=== PATIENT | female | born 1945 | race Caucasian/White ===

== ENCOUNTER 2021-05-20 06:41 | Outpatient (CLI) | payer MEDICARE | END 2021-05-20 06:42 | disposition critical access hospital (66) | LOC: EMS 06:41 | DX: R41.82 Altered mental status, unspecified (principal) | CPT/HCPCS: A0425; A0429 ==

== ENCOUNTER 2021-05-20 07:16 | Emergency (ER) | payer MEDICARE ==
[2021-05-20] MEDS ORDERED: KETOROLAC 30 MG/ML VIAL IVP STA (07:27)
--- NOTE | 2021-05-20 07:29 | ED Physician Documentation ---
PD HPI ALTERED MENTAL STATUS - Stated complaint Stated Complaint: AMS - History obtained from History obtained from: Patient - History of Present Illness Timing - onset: How many minutes ago (30) Timing - duration: Minutes Timing - details: Abrupt onset ( heard her breathing funny/snoring loud and so tried to wake her. She did not awaken. He tried to sit her up/roll her to side to clear her breathing. She had clenched mouth, per . No extremity movement/seizure activity otherwise. He called EMS. Patient awake by EMS arrival but confused), Other (she says she remembers getting up to bathroom a bit earlier and then back to bed. Remembers it well, and no fall/injury. Then next memory of and medics above her as she awoke.) Quality / character: Less responsive Associated symptoms: No: Fever, Headache, Stiff neck, Dyspnea, Cough, NVD, Seizure activity (clenched mouth per ) Contributing factors: No: Anticoagulated, Diabetic, Recent illness Basline status: Alert and oriented X 3, Ambulatory Similar symptoms before: Has not had sx before Recently seen: Not recently seen Review of Systems Constitutional: denies: Fever, Chills Nose: denies: Rhinorrhea / runny nose, Congestion Throat: denies: Sore throat Respiratory: denies: Cough GI: denies: Abdominal Pain, Nausea, Vomiting, Diarrhea Musculoskeletal: reports: Other (left shoulder pain.) Neurologic: denies: Altered mental status, Headache PD PAST MEDICAL HISTORY - Past Medical History Cardiovascular: Hypertension Musculoskeletal: Osteoarthritis, Other (sciatica) - Past Surgical History Past Surgical History: Yes Cardiovascular: Pacemaker - Present Medications Home Medications: Ambulatory Orders Medication Instructions Recorded Confirmed Atorvastatin Calcium 1 tab DAILY 05/20/21 05/20/21 Meloxicam [Mobic] 7.5 mg PO BID 10 Days #20 tablet 05/20/21 Metoprolol Tartrate [Lopressor] 1 tab BID 05/20/21 05/20/21 Omeprazole 1 tab DAILY 05/20/21 05/20/21 Ondansetron Odt [Zofran] 4 mg TL Q6H PRN #20 tablet 05/20/21 oxyCODONE [Roxicodone] 5 mg PO Q6H PRN #12 tablet 05/20/21 - Allergies Allergies/Adverse Reactions: Allergies Allergy/AdvReac Type Severity Reaction Status Date / Time No Known Drug Allergies Allergy Verified 05/20/21 07:27 - Social History Does the pt smoke?: No Smoking Status: Never smoker Does the pt drink ETOH?: No Does the pt have substance abuse?: No - Immunizations Immunizations are current?: Yes - POLST Patient has POLST: No PD ED PE NORMAL - Vitals Vital signs reviewed: Yes - General General: Alert and oriented X 3, No acute distress, Well developed/nourished - HEENT HEENT: Atraumatic, Pharynx benign (no oral lesions/lacs. ) - Neck Neck: Supple, no meningeal sign, No adenopathy - Cardiac Cardiac: RRR, No murmur - Respiratory Respiratory: Clear bilaterally - Abdomen Abdomen: Soft, Non tender - Back Back: No CVA TTP - Derm Derm: Normal color, Warm and dry - Extremities Extremities: Other (left shoulder pain with palpation and slight movement. 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 No: ST elevation c/w ischemia, ST depression - Labs Labs: Laboratory Tests 05/20/21 05/20/21 05/20/21 07:36 07:36 07:36 WBC 7.5 RBC 4.07 L Hgb 12.7 Hct 39.7 MCV 97.5 MCH 31.2 H MCHC 32.0 RDW 12.8 Plt Count 206 MPV 11.3 H Neut # (Auto) 5.8 Lymph # (Auto) 1.0 L Frio # (Auto) 0.4 Eos # (Auto) 0.1 Baso # (Auto) 0.0 Absolute Nucleated RBC 0.00 Nucleated RBC % 0.0 Sodium 139 Potassium 4.1 Chloride 103 Carbon Dioxide 26 Anion Gap 10.0 BUN 15 Creatinine 0.8 Estimated GFR (MDRD) 70 L Glucose 149 H Calcium 9.3 Magnesium 2.4 Total Bilirubin 0.5 AST 17 ALT 16 Alkaline Phosphatase 73 Troponin I High Sens 2.7 B-Natriuretic Peptide Total Protein 7.3 Albumin 4.4 Globulin 2.9 Albumin/Globulin Ratio 1.5 Lipase 28 05/20/21 07:36 WBC RBC Hgb Hct MCV MCH MCHC RDW Plt Count MPV Neut # (Auto) Lymph # (Auto) Frio # (Auto) Eos # (Auto) Baso # (Auto) Absolute Nucleated RBC Nucleated RBC % Sodium Potassium Chloride Carbon Dioxide Anion Gap BUN Creatinine Estimated GFR (MDRD) Glucose Calcium Magnesium Total Bilirubin AST ALT Alkaline Phosphatase Troponin I High Sens B-Natriuretic Peptide 45 Total Protein Albumin Globulin Albumin/Globulin Ratio Lipase - Rads (name of study) chest xray Radiology: Prelim report reviewed (no acute), See rad report shoulder left Radiology: Prelim report reviewed (humeral neck fracture), See rad report head CT Radiology: Prelim report reviewed (no acute), See rad report PD MEDICAL DECISION MAKING - ED course Complexity details: reviewed results, considered differential (description could be seizure versus syncope, low sugar, low BP. Unclear how she got arm fracture. Could be c/w seizure acitivty, though does not describe tonic/clonic movement. He did turn her sideways in bed by shoulders, so could have torqued the arm. She is sure she did not fall.), d/w patient Departure - Departure Disposition: 01 Home, Self Care Clinical Impression: Unresponsive episode Humerus surgical neck fracture Qualifiers: Encounter type: initial encounter Fracture type: closed Fracture morphology: 2- part Fracture alignment: nondisplaced Laterality: left Qualified Code(s): S42.225A - 2-part nondisplaced fracture of surgical neck of left humerus, initial encounter for closed fracture Condition: Stable Instructions: ED Fx Shoulder Follow-Up: Danielle Bryant MD [Primary Care Provider] - Prescriptions: Meloxicam [Mobic] 7.5 mg PO BID 10 Days #20 tablet oxyCODONE [Roxicodone] 5 mg PO Q6H PRN #12 tablet PRN Reason: Pain Ondansetron Odt [Zofran] 4 mg TL Q6H PRN #20 tablet PRN Reason: Nausea / Vomiting Comments: Pain to help reduce range of motion of the shoulder and reduce pain and promote healing. Follow-up with your orthopedist Dr. Retana regarding this. Call for an appointment for follow-up likely in about a week. Follow-up with your primary care as well Dr. Bryant regarding the episode. See if there is any further evaluation there would like to do. Send in an interrogation of your heart pacemaker to see if there was any abnormal rhythm during that time. Stay well-hydrated. Consider an anti-inflammatory such as meloxicam twice daily with food for the next 7 to 10 days. To that add Tylenol 4 times a day for pain and oxycodone every 6 hours if needed for worse pain. Ondansetron if needed for nausea. Ccontinue your other usual medicines. I transmitted the prescriptions to [facility] in [place]. I am prescribing a short course of narcotic pain medication for you. These are potentially dangerous and addictive medications that should be used carefully. These medications may constipate you. Take an [id number] stool softener such as docusate twice daily with plenty of water while taking these medications. If you go 24 hours without a bowel movement, take jrsi-xez-[id number] MiraLAX, per package instructions. Do not drink or drive while taking these medications. If you received narcotic or sedating medications while in the emergency department do not drive for 24 hours. Store this medication in a safe, secure place and out of reach of children. It is a violation of federal law to give or sell this medication to another person or to use in a manner other than prescribed. The ED will not refill narcotic prescriptions, including prescriptions lost or stolen. You can dispose of unwanted medications at the [facility]'s office or at several pharmacies such as [email or web address] Discharge Date/Time: 05/20/21 10:35
[2021-05-20 07:53] LABS: BASOPHILS % (AUTO) 0.5 %; EOSINOPHILS # (AUTO) 0.1 10^3/uL (0.0-0.7); EOSINOPHILS % (AUTO) 1.7 %; HCT - HEMATOCRIT 39.7 % (37.0-47.0); HGB - HEMOGLOBIN 12.7 g/dL (12.0-16.0); LYMPHOCYTES % (AUTO) 13.9 %; MEAN CORPUSCULAR HEMOGLOBIN 31.2 pg (27.0-31.0); MEAN CORPUSCULAR VOLUME 97.5 fL (81.0-99.0); MEAN PLATELET VOLUME 11.3 fL (7.9-10.8); MONOCYTES # (AUTO) 0.4 10^3/uL (0.0-1.0); MONOCYTES % (AUTO) 5.5 %; NEUTROPHILS # (AUTO) 5.8 10^3/uL (1.5-6.6); NEUTROPHILS % (AUTO) 77.9 %; PLT - PLATELET COUNT 206 10^3/uL (130-450); RED BLOOD COUNT 4.07 10^6/uL (4.20-5.40); RED CELL DISTRIBUTION WIDTH 12.8 % (12.0-15.0); WHITE BLOOD COUNT 7.5 x10^3/uL (4.8-10.8)
[2021-05-20 08:12] LABS: ALBUMIN 4.4 g/dL (3.2-5.5); ALBUMIN/GLOBULIN RATIO 1.5 (1.0-2.2); BILIRUBIN,TOTAL 0.5 mg/dL (0.2-1.0); CALCIUM 9.3 mg/dL (8.5-10.3); CREATININE 0.8 mg/dL (0.4-1.0); MAGNESIUM 2.4 mg/dL (1.7-2.8); POTASSIUM 4.1 mmol/L (3.5-5.0); TOTAL PROTEIN 7.3 g/dL (6.7-8.2)
--- NOTE | 2021-05-20 08:15 | XRAY Report ---
PROCEDURE: Shoulder 3 View LT INDICATIONS: left shoulder pain this morning TECHNIQUE: 3 views of the shoulder were acquired. COMPARISON: None. FINDINGS: Bones: Subtle impaction and radial lucency involving greater and lesser tuberosity of proximal humeru s concerning for impaction injury of indeterminant age in this area. Moderate acromioclavicular joint and glenohumeral joint osteoarthritic changes are seen. No suspicious bony lesions. Visualized ribs appear intact. Soft tissues: Small calcifications adjacent to greater tuberosity of humeral head is seen suggestive of calcific tendinitis. IMPRESSION: Moderate left shoulder joint osteoarthritis. Subtle radiolucency and deformity involving surgical neck of left proximal humerus concerning for age-indeterminate impaction injury in this are a, suggest clinical correlation. This is a new finding from chest radiograph dated 05/04/2013. Reviewed by: Sreedhar Rodriguez MD on 05/20/2021 8:14 AM PDT Approved by: Sreedhar Rodriguez MD on 05/20/2021 8:14 AM PDT Station ID: [id number]
--- NOTE | 2021-05-20 08:17 | XRAY Report ---
PROCEDURE: Chest 1 View X-Ray INDICATIONS: Chest Pain TECHNIQUE: One view of the chest was acquired. COMPARISON: 05/04/2013 FINDINGS: Surgical changes and devices: Patient is status post right shoulder arthroplasty. Left chest wall pac emaker leads are in the region of right atrium and right ventricle.. Lungs and pleura: No pleural effusions or pneumothorax. Lungs are clear. Mediastinum: Mediastinal contours appear normal. Heart size is enlarged. Bones and chest wall: Subtle deformity involving left humeral surgical neck. Overlying soft tissues a ppear unremarkable. IMPRESSION: 1. No acute cardiopulmonary pathology. 2. Subtle deformity involving surgical neck of left proximal humerus better evaluated on dedicated le ft shoulder radiograph from the same day. Reviewed by: Sreedhar Rodriguez MD on 05/20/2021 8:15 AM PDT Approved by: Sreedhar Rodriguez MD on 05/20/2021 8:15 AM PDT Station ID: [id number]
--- NOTE | 2021-05-20 08:45 | CT Report ---
PROCEDURE: HEAD WO INDICATIONS: possible fall; altered mental statsu TECHNIQUE: Noncontrast 4.5 mm thick angled axial sections acquired from the foramen magnum to the vertex. For r adiation dose reduction, the following was used: automated exposure control, adjustment of mA and/or kV according to patient size. COMPARISON: 05/04/2013. FINDINGS: Image quality: Excellent. CSF spaces: Basal cisterns are patent. No extra-axial fluid collections. Ventricles are normal in size and shape. Brain: No midline shift. No intracranial masses or hemorrhage. Extensive periventricular and deep white matter chronic small vessel ischemic changes are seen. Goyal-white matter interface is normal. Skull and face: Calvarium and visualized facial bones are intact, without suspicious lesions. Sinuses: Visualized sinuses and mastoids are clear. IMPRESSION: 1. No CT evidence of acute intracranial pathology. 2. Extensive white matter chronic small vessel ischemic changes. 3. No gross acute skull fracture. Reviewed by: Sreedhar Rodriguez MD on 05/20/2021 8:43 AM PDT Approved by: Sreedhar Rodriguez MD on 05/20/2021 8:43 AM PDT Station ID: [id number]
[2021-05-20] MEDS ORDERED: MORPHINE 2 MG/ML CARPUJECT IVP STA (09:30)
[2021-05-20] MEDS ORDERED: ONDANSETRON 4 MG/2 ML VIAL IVP STA (09:30)
[2021-05-20] MEDS ORDERED: ACETAMINOPHEN 325 MG TABLET PO STA (09:30)
[2021-05-20 10:16] VITALS: BP 138/73
== END 2021-05-20 10:35 | disposition home or self-care (01) ==
LOC: EDUNIT# → ED 07:16
DX: R40.4 Transient alteration of awareness (principal); R41.0 Disorientation, unspecified; S42.225A 2-part nondisplaced fracture of surgical neck of left humerus, initial encounter for closed fracture; X58.XXXA Exposure to other specified factors, initial encounter; I10 Essential (primary) hypertension; Z95.0 Presence of cardiac pacemaker
CPT/HCPCS: 36415; 70450; 71045; 73030; 80053; 83690; 83735; 83880; 84484; 85025; 93005; 96374; 96375; 99283; 99284; A9270

== ENCOUNTER 2022-01-15 00:32 | Outpatient (CLI) | payer MEDICARE | END 2022-01-15 23:59 | disposition critical access hospital (66) | LOC: EMS 00:32 | DX: R41.0 Disorientation, unspecified (principal); R11.0 Nausea; R32 Unspecified urinary incontinence; H55.00 Unspecified nystagmus | CPT/HCPCS: A0425; A0427 ==

== ENCOUNTER 2022-01-15 01:08 | Emergency (ER) | payer MEDICARE ==
--- NOTE | 2022-01-15 01:15 | ED Physician Documentation ---
PD HPI ALTERED MENTAL STATUS - Stated complaint Stated Complaint: AMS, POSS SZ - History obtained from History obtained from: Patient, EMS - History of Present Illness Timing - onset: How many hours ago (1) Associated symptoms: Headache (mild generalized). 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 Approximately 1 hour INSPECTOR [employer], was lying in bed next to patient when he heard her breathing sonorously. He found her to be unresponsive and called 911. He reportedly briefly performed CPR. EMS arrived to find patient awake, alert, answering slowly and oriented x 2. Patient has gradually returned to baseline mental status by the time of this H+P. At no time was there witnessed seizure activity (by or EMS) Patient says she had a similar episode in May (2020) and that it was a seizure; in reviewing the ED note 05/20/21, it indicates seizure was on the differential diagnosis but not final diagnosis. Patient tells me she did follow up after that ED visit but no further testing performed. Review of Systems Constitutional: reports: Reviewed and negative Eyes: reports: Reviewed and negative Throat: reports: Other (lower lip injury (appears to have bitten her lower lip)) Cardiac: reports: Reviewed and negative Respiratory: reports: Reviewed and negative GI: reports: Reviewed and negative : denies: Dysuria, Frequency, Incontinent Musculoskeletal: reports: Reviewed and negative Neurologic: reports: Headache (mild generalized headache), LOC. denies: Generalized weakness, Focal weakness, Numbness PD PAST MEDICAL HISTORY - Past Medical History Cardiovascular: Hypertension Respiratory: Sleep apnea, CPAP use Musculoskeletal: Osteoarthritis, Other (sciatica) - Past Surgical History Past Surgical History: Yes Cardiovascular: Pacemaker - Present Medications Home Medications: Ambulatory Orders Medication Instructions Recorded Confirmed Atorvastatin Calcium 1 tab DAILY 05/20/21 05/20/21 Meloxicam [Mobic] 7.5 mg PO BID 10 Days #20 tablet 05/20/21 Metoprolol Tartrate [Lopressor] 1 tab BID 05/20/21 05/20/21 Omeprazole 1 tab DAILY 05/20/21 05/20/21 Ondansetron Odt [Zofran] 4 mg TL Q6H PRN #20 tablet 05/20/21 oxyCODONE [Roxicodone] 5 mg PO Q6H PRN #12 tablet 05/20/21 - Allergies Allergies/Adverse Reactions: Allergies Allergy/AdvReac Type Severity Reaction Status Date / Time No Known Drug Allergies Allergy Verified 01/15/22 01:15 - Social History Does the pt smoke?: No Smoking Status: Never smoker Does the pt drink ETOH?: No Does the pt have substance abuse?: No - Immunizations Immunizations are current?: Yes - POLST Patient has POLST: No PD ED PE NORMAL - Vitals Vital signs reviewed: Yes - General General: Alert and oriented X 3, No acute distress, Well developed/nourished - HEENT HEENT: PERRL, EOMI, Other (superficial bite nisha to mucosal aspect of lower lip as well as to right lateral aspect of tongue) - Neck Neck: Supple, no meningeal sign, No bony TTP - Cardiac Cardiac: RRR, No murmur, No gallop, No rub - Respiratory Respiratory: No respiratory distress, Clear bilaterally - Abdomen Abdomen: Soft, Non tender - Back Back: No spinal TTP - Derm Derm: Normal color, Warm and dry - Extremities Extremities: No deformity, No tenderness to palpate, Normal ROM s pain - Neuro Neuro: Alert and oriented X 3, 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, No motor deficit, No sensory deficit, Normal speech Eye Opening: Spontaneous Motor: Obeys Commands Verbal: Oriented GCS Score: 15 - Psych Psych: Normal mood, Normal affect Results - Vitals Vitals: Oxygen O2 Source Room air - EKG (time done) No standard instances Rate: Rate (enter#) (83) Rhythm: NSR Nash: LAD Intervals: Normal [place] QRS: Normal Ischemia: Normal ST segments - Labs Labs: Laboratory Tests 01/15/22 01/15/22 01/15/22 01:31 01:31 01:31 WBC 6.9 RBC 3.90 L Hgb 12.1 Hct 37.2 MCV 95.4 MCH 31.0 MCHC 32.5 RDW 12.7 Plt Count 220 MPV 10.9 H Neut # (Auto) 5.5 Lymph # (Auto) 0.8 L [place] # (Auto) 0.5 Eos # (Auto) 0.1 Baso # (Auto) 0.0 Absolute Nucleated RBC 0.00 Nucleated RBC % 0.0 Sodium 141 Potassium 3.7 Chloride 104 Carbon Dioxide 26 Anion Gap 11.0 BUN 11 Creatinine 0.9 Estimated GFR (MDRD) 61 L Glucose 131 H Calcium 9.0 Total Bilirubin 0.5 AST 17 ALT 16 Alkaline Phosphatase 74 Troponin I High Sens Total Protein 7.3 Albumin 4.3 Globulin 3.0 Albumin/Globulin Ratio 1.4 Lipase 29 TSH 3.62 Urine Color Urine Clarity Urine pH Ur Specific [place] Urine Protein Urine Glucose (UA) Urine Ketones Urine Occult Blood Urine Nitrite Urine Bilirubin Urine Urobilinogen Ur Leukocyte Esterase Ur Microscopic Review Urine Culture Comments Ethyl Alcohol 5.2 01/15/22 01/15/22 01:31 03:24 WBC RBC Hgb Hct MCV MCH MCHC RDW Plt Count MPV Neut # (Auto) Lymph # (Auto) [place] # (Auto) Eos # (Auto) Baso # (Auto) Absolute Nucleated RBC Nucleated RBC % Sodium Potassium Chloride Carbon Dioxide Anion Gap BUN Creatinine Estimated GFR (MDRD) Glucose Calcium Total Bilirubin AST ALT Alkaline Phosphatase Troponin I High Sens 3.2 Total Protein Albumin Globulin Albumin/Globulin Ratio Lipase TSH Urine Color YELLOW Urine Clarity CLEAR Urine pH 5.5 Ur Specific [place] 1.020 Urine Protein NEGATIVE Urine Glucose (UA) NEGATIVE Urine Ketones NEGATIVE Urine Occult Blood NEGATIVE Urine Nitrite NEGATIVE Urine Bilirubin NEGATIVE Urine Urobilinogen 0.2 (NORMAL) Ur Leukocyte Esterase NEGATIVE Ur Microscopic Review NOT INDICATED Urine Culture Comments NOT INDICATED Ethyl Alcohol - Rads (name of study) chest xray Radiology: Prelim report reviewed, See rad report CT head Radiology: Prelim report reviewed, See rad report PD MEDICAL DECISION MAKING - ED course Complexity details: reviewed old records, reviewed results, re-evaluated patient, considered differential, d/w patient ED course: Patient presents after found her sonorous in bed next to him with decreased level of consciousness. She gradually but completely returned to baseline mental status prior to arrival to ED. She is certain she had "another seizure" (per patient), based on a similar previous episode in May 2021. HPI and finding of tongue/lip bite is consistent with seizure, but I emphasized to her that other possibilities remain on the differential, such as transient drop in BP/transient cardiac dysrhythmia. During ED stay, she had an episode of nausea associated with appearing diaphoretic and pale; I was summoned to bedside and felt a strong right radial pulse and her vital signs remained within normal limits on the monitor. By the time the blood pressure cuff was able to recycle and obtain a reading (it had to reinflate at least once due to not obtaining a reading), her symptoms had nearly resolved and her blood pressure reading was normal; transient hypotension is suspected (possibly too low for auto BP cuff to read, although I did not feel her pulse become weak or thready), but cause is unclear and whether this episode is related to the episode at home for which called 911 is also unclear. She was observed in ED for over five hours and after tests resulted and she had some rest, she is requesting d/c home. I discussed results with her (no concerning findings on CTH, CXR, EKG, blood tests including normal hs-cTn) and I emphasized the need for follow up with PMD for reevaluation and possible further testing at PMD's discretion. Return precautions discussed. Departure - Departure Disposition: 01 Home, Self Care Clinical Impression: Altered mental status Qualifiers: Altered mental status type: unspecified Qualified Code(s): R41.82 - Altered mental status, unspecified Condition: Good Instructions: ED Altered Loc, ED Fainting Unkn Cause Comments: As we discussed, the results of tonight's tests are unremarkable. This is obviously reassuring and makes a serious cause of symptoms unlikely. Seizure remains a possibility but suspicion for seizure typically is raised when there is witnessed seizure activity. Follow up with your primary care provider. You have indicated you have a neurologist, and I recommend you also seek follow up with your neurologist. Further testing can help determine whether you have an underlying seizure disorder (EEG), but whether this testing is indicated and/or potentially beneficial is at the discretion of your doctor Discharge Date/Time: 01/15/22 06:29
[2022-01-15 01:39] LABS: BASOPHILS % (AUTO) 0.3 %; EOSINOPHILS # (AUTO) 0.1 10^3/uL (0.0-0.7); EOSINOPHILS % (AUTO) 1.7 %; HCT - HEMATOCRIT 37.2 % (37.0-47.0); HGB - HEMOGLOBIN 12.1 g/dL (12.0-16.0); LYMPHOCYTES # (AUTO) 0.8 10^3/uL (1.5-3.5); LYMPHOCYTES % (AUTO) 10.9 %; MEAN CORPUSCULAR HGB CONC 32.5 g/dL (32.0-36.0); MEAN CORPUSCULAR VOLUME 95.4 fL (81.0-99.0); MEAN PLATELET VOLUME 10.9 fL (7.9-10.8); MONOCYTES # (AUTO) 0.5 10^3/uL (0.0-1.0); NEUTROPHILS # (AUTO) 5.5 10^3/uL (1.5-6.6); NEUTROPHILS % (AUTO) 79.8 %; PLT - PLATELET COUNT 220 10^3/uL (130-450); RED CELL DISTRIBUTION WIDTH 12.7 % (12.0-15.0); WHITE BLOOD COUNT 6.9 x10^3/uL (4.8-10.8)
[2022-01-15] MEDS ORDERED: ONDANSETRON 4 MG/2 ML VIAL IVP STA (01:48)
[2022-01-15 01:52] LABS: ALBUMIN 4.3 g/dL (3.2-5.5); ALBUMIN/GLOBULIN RATIO 1.4 (1.0-2.2); BILIRUBIN,TOTAL 0.5 mg/dL (0.2-1.0); CREATININE 0.9 mg/dL (0.4-1.0); ETOH - ETHANOL 5.2 mg/dL; POTASSIUM 3.7 mmol/L (3.5-5.0); TOTAL PROTEIN 7.3 g/dL (6.7-8.2)
--- NOTE | 2022-01-15 02:00 | CT Report ---
PROCEDURE: HEAD WO INDICATIONS: AMS TECHNIQUE: Noncontrast 4.5 mm thick angled axial sections acquired from the foramen magnum to the vertex. For r adiation dose reduction, the following was used: automated exposure control, adjustment of mA and/or kV according to patient size. COMPARISON: CT head 05/20/2021. FINDINGS: Image quality: Excellent. CSF spaces: The ventricles are symmetric and normal in size. Basal cisterns are patent. No extra-axi al fluid collections. Brain: No intracranial hemorrhage, mass, or mass effect. Goyal-white matter interface is preserved. T here are patchy subcortical and periventricular white matter hypodensities redemonstrated consistent with moderate chronic small vessel ischemic changes. Skull and face: Calvarium and visualized facial bones are intact, without suspicious lesions. Sinuses: Visualized sinuses and mastoids are clear. IMPRESSION: 1. No acute intracranial abnormality. 2. Moderate chronic white matter small vessel ischemic changes. Reviewed by: Hiren Kong MD on 01/15/2022 1:59 AM PDT Approved by: Hiren Kong MD on 01/15/2022 1:59 AM PDT Station ID: [id number]
--- NOTE | 2022-01-15 02:03 | XRAY Report ---
PROCEDURE: Chest 1 View X-Ray INDICATIONS: AMS TECHNIQUE: One view of the chest was acquired. COMPARISON: 05/20/2021 FINDINGS: Surgical changes and devices: Left chest wall dual-lead pacemaker appears similar in position. The ri ght shoulder prosthesis is also again noted. Lungs and pleura: No pleural effusions or pneumothorax. Visualized lungs are clear. Mediastinum: Mediastinal contours appear normal. Heart size is normal. Bones and chest wall: No suspicious bony lesions. Overlying soft tissues appear unremarkable. IMPRESSION: 1. No acute cardiopulmonary disease. Reviewed by: Hiren Kong MD on 01/15/2022 2:02 AM PDT Approved by: Hiren Kong MD on 01/15/2022 2:02 AM PDT Station ID: [id number]
[2022-01-15 03:37] LABS: BILIRUBIN,URINE NEGATIVE (NEGATIVE); GLUCOSE, URINE (UA) NEGATIVE (NEGATIVE); KETONES,URINE (UA) NEGATIVE (NEGATIVE); LEUKOCYTE ESTERASE, URINE NEGATIVE (NEGATIVE); NITRITE,URINE NEGATIVE (NEGATIVE); OCCULT BLOOD,URINE NEGATIVE (NEGATIVE); PH,URINE 5.5 PH (5.0-7.5); PROTEIN,URINE NEGATIVE (NEGATIVE); UROBILINOGEN,URINE 0.2 (NORMAL) E.U./dL (NORMAL)
[2022-01-15 03:39] LABS: CLARITY,URINE CLEAR (CLEAR)
[2022-01-15 05:13] VITALS: BP 99/43
== END 2022-01-15 06:29 | disposition home or self-care (01) ==
LOC: ED 01:08
DX: R41.82 Altered mental status, unspecified (principal); I10 Essential (primary) hypertension; Z95.0 Presence of cardiac pacemaker
CPT/HCPCS: 36415; 70450; 71045; 80053; 81003; 83690; 84443; 84484; 85025; 93005; 96374; 99283; 99284; G0480; 80320; 81001; 87086

== ENCOUNTER 2022-03-04 11:30 | Emergency (ER) | payer MEDICARE ==
--- NOTE | 2022-03-04 11:55 | ED Physician Documentation ---
PD HPI ALTERED MENTAL STATUS - Stated complaint Stated Complaint: R KNEE PX - Chief complaint Chief Complaint: Neuro - History obtained from History obtained from: Patient - History of Present Illness Timing - onset: Today, Yesterday Timing - duration: Seconds Timing - details: Abrupt onset, Now resolved (she has noted brief periods of memory loss, not being aware of events just happened (like watching a TV show and then suddenly the plot has advanced without seeing the interval).) Quality / character: Memory Loss Associated symptoms: No: Fever, Headache, Stiff neck, Focal weakness, Seizure activity, Syncope Contributing factors: Recent med change (had changed from oxycodone to tramadol for post op knee pain 3 days ago.). No: Recent illness Review of Systems Constitutional: denies: Fever, Chills Nose: denies: Rhinorrhea / runny nose, Congestion Throat: denies: Sore throat Cardiac: denies: Chest pain / pressure Respiratory: denies: Dyspnea, Cough GI: denies: Abdominal Pain, Nausea, Vomiting Neurologic: denies: Focal weakness, Numbness, Seizure, Headache, Head injury PD PAST MEDICAL HISTORY - Past Medical History Cardiovascular: Hypertension Respiratory: Sleep apnea, CPAP use Musculoskeletal: Osteoarthritis, Other (sciatica) - Past Surgical History Past Surgical History: Yes Cardiovascular: Pacemaker - Present Medications Home Medications: Ambulatory Orders Medication Instructions Recorded Confirmed Atorvastatin Calcium 1 tab DAILY 05/20/21 05/20/21 Meloxicam [Mobic] 7.5 mg PO BID 10 Days #20 tablet 05/20/21 Metoprolol Tartrate [Lopressor] 1 tab BID 05/20/21 05/20/21 Omeprazole 1 tab DAILY 05/20/21 05/20/21 Ondansetron Odt [Zofran] 4 mg TL Q6H PRN #20 tablet 05/20/21 oxyCODONE [Roxicodone] 5 mg PO Q6H PRN #12 tablet 05/20/21 - Allergies Allergies/Adverse Reactions: Allergies Allergy/AdvReac Type Severity Reaction Status Date / Time No Known Drug Allergies Allergy Verified 03/04/22 11:49 - Social History Does the pt smoke?: No Smoking Status: Never smoker Does the pt drink ETOH?: No Does the pt have substance abuse?: No - Immunizations Immunizations are current?: Yes - POLST Patient has POLST: No PD ED PE NORMAL - Vitals Vital signs reviewed: Yes - General General: Alert and oriented X 3, No acute distress, Well developed/nourished - HEENT HEENT: Atraumatic, Pharynx benign - Neck Neck: Supple, no meningeal sign, No adenopathy - Cardiac Cardiac: RRR, No murmur - Respiratory Respiratory: Clear bilaterally - Abdomen Abdomen: Soft, Non tender - Derm Derm: Normal color, Warm and dry - Extremities Extremities: No edema, No calf tenderness / cord, Other (right knee with surgical wound anteriorly well healing without signs of infection. 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 No: ST elevation c/w ischemia, ST depression - Labs Labs: Laboratory Tests 03/04/22 03/04/22 14:17 14:17 WBC 7.7 RBC 3.52 L Hgb 11.1 L Hct 33.9 L MCV 96.3 MCH 31.5 H MCHC 32.7 RDW 13.1 Plt Count 342 MPV 10.5 Neut # (Auto) 5.4 Lymph # (Auto) 1.3 L [place] # (Auto) 0.6 Eos # (Auto) 0.3 Baso # (Auto) 0.1 Absolute Nucleated RBC 0.00 Nucleated RBC % 0.0 Manual Slide Review Indicated WBC Morphology NORMAL APPEARANCE Platelet Estimate NORMAL (130-450,000) Platelet Morphology NORMAL APPEARANCE RBC Morph Micro Appear NORMAL APPEARANCE Sodium 138 Potassium 4.2 Chloride 100 L Carbon Dioxide 26 Anion Gap 12.0 BUN 17 Creatinine 0.7 Estimated GFR (MDRD) 82 L Glucose 113 H Calcium 9.1 Magnesium 2.1 Total Bilirubin 0.7 AST 14 ALT 14 Alkaline Phosphatase 75 Total Protein 7.1 Albumin 3.7 Globulin 3.4 Albumin/Globulin Ratio 1.1 Lipase 25 - Rads (name of study) carotid dopplers Radiology: Prelim report reviewed, See rad report (no occlusions over 50%.) head CT Radiology: Prelim report reviewed (no acute process), See rad report PD MEDICAL DECISION MAKING - ED course Complexity details: considered differential (nonfocal memory loss/not aware of events for short periods. Sounds more likely toxic/metabolic and not neuro. Timing corresponds with change in pain meds to Tramadol and this could easily be side effect of that. Can check labs and head CT. ), d/w patient, d/w claims consultant (provider at [facility] vascular called that they talked with patient and referred to ER. Not gotten report from her pacer as yet. ) Departure - Departure Disposition: 01 Home, Self Care Clinical Impression: Intermittent confusion Status post knee replacement Qualifiers: Laterality: right Qualified Code(s): Z96.651 - Presence of right artificial knee joint Condition: Stable Record reviewed to determine appropriate education?: Yes Comments: Your head CT scan and neck ultrasound do not show any acute abnormalities nor flow limitations. Your vital signs and blood count and electrolytes and blood sugar are all good here. I believe your episodes of forgetfulness and confusion might relate to medication side effects, in particular the recent change in pain medicine to tramadol. I would suggest not taking the tramadol. Use Tylenol every 4-6 hours regularly for the next several days to week. You can continue with the meloxicam if needed. This is an anti-inflammatory. If you need stronger pain medicine, I would go back to your oxycodone but take just a half a tablet of 2.5 mg if you do not need as much pain medicine as the 5 mg. Follow-up with your primary care and cardiology etc. if continued with episodes despite the above. Stay well-hydrated. Discharge Date/Time: 03/04/22 16:02
--- NOTE | 2022-03-04 13:44 | CT Report ---
PROCEDURE: HEAD WO INDICATIONS: episodic confusion x few days TECHNIQUE: Noncontrast 4.5 mm thick angled axial sections acquired from the foramen magnum to the vertex. For r adiation dose reduction, the following was used: automated exposure control, adjustment of mA and/or kV according to patient size. COMPARISON: 01/15/2022 FINDINGS: Image quality: Excellent. CSF spaces: Basal cisterns are patent. No extra-axial fluid collections. Ventricles are normal in size and shape. Brain: No acute intracranial hemorrhage. Moderate periventricular white matter attenuation likely ref lects chronic microangiopathy. There are vascular calcifications. No large territory infarction. Over all pattern of hypoattenuation is stable compared to January 2022. Skull and face: Calvarium and visualized facial bones are intact, without suspicious lesions. Sinuses: Visualized sinuses and mastoids are clear. IMPRESSION: No acute intracranial abnormality. Chronic evidence of small vessel ischemic changes. Reviewed by: Sancho Davalos MD on 03/04/2022 1:43 PM PDT Approved by: Sancho Davalos MD on 03/04/2022 1:43 PM PDT Station ID: [id number]
[2022-03-04 14:26] LABS: BASOPHILS # (AUTO) 0.1 10^3/uL (0.0-0.1); BASOPHILS % (AUTO) 0.8 %; EOSINOPHILS # (AUTO) 0.3 10^3/uL (0.0-0.7); EOSINOPHILS % (AUTO) 3.9 %; HCT - HEMATOCRIT 33.9 % (37.0-47.0); HGB - HEMOGLOBIN 11.1 g/dL (12.0-16.0); LYMPHOCYTES # (AUTO) 1.3 10^3/uL (1.5-3.5); LYMPHOCYTES % (AUTO) 17.3 %; MEAN CORPUSCULAR HEMOGLOBIN 31.5 pg (27.0-31.0); MEAN CORPUSCULAR HGB CONC 32.7 g/dL (32.0-36.0); MEAN CORPUSCULAR VOLUME 96.3 fL (81.0-99.0); MEAN PLATELET VOLUME 10.5 fL (7.9-10.8); MONOCYTES # (AUTO) 0.6 10^3/uL (0.0-1.0); MONOCYTES % (AUTO) 8.2 %; NEUTROPHILS # (AUTO) 5.4 10^3/uL (1.5-6.6); NEUTROPHILS % (AUTO) 69.5 %; PLT - PLATELET COUNT 342 10^3/uL (130-450); RED BLOOD COUNT 3.52 10^6/uL (4.20-5.40); RED CELL DISTRIBUTION WIDTH 13.1 % (12.0-15.0); WHITE BLOOD COUNT 7.7 x10^3/uL (4.8-10.8)
[2022-03-04 14:31] LABS: SLIDE REVIEW? Indicated
[2022-03-04 14:37] LABS: ALBUMIN 3.7 g/dL (3.2-5.5); ALBUMIN/GLOBULIN RATIO 1.1 (1.0-2.2); BILIRUBIN,TOTAL 0.7 mg/dL (0.2-1.0); CALCIUM 9.1 mg/dL (8.5-10.3); CREATININE 0.7 mg/dL (0.4-1.0); MAGNESIUM 2.1 mg/dL (1.7-2.8); POTASSIUM 4.2 mmol/L (3.5-5.0); TOTAL PROTEIN 7.1 g/dL (6.7-8.2)
[2022-03-04 14:52] LABS: PLATELET ESTIMATE, MANUAL NORMAL (130-450,000) (NORMAL); PLATELET MORPHOLOGY NORMAL APPEARANCE (NORMAL); RBC MORPHOLOGY (MULTIPLE) NORMAL APPEARANCE (NORMAL); WBC MORPHOLOGY (MULTIPLE) NORMAL APPEARANCE (NORMAL)
--- NOTE | 2022-03-04 15:41 | Ultrasound Report ---
PROCEDURE: Carotid Doppler Complete INDICATIONS: episodic confusion x few days TECHNIQUE: Color and pulse Doppler interrogation was performed of both carotid systems, with image documentation and velocity measurements. COMPARISON: None. FINDINGS: Right side: Brachial blood pressure: 133/79 mm Hg. Common carotid artery peak systolic velocity: 62 cm/sec. Internal carotid artery peak systolic velocity: 66 cm/sec. Internal carotid artery end diastolic velocity: 22 cm/sec. External carotid artery peak systolic velocity: 91 cm/sec. ICA/CCA peak systolic ratio: 1.0 . Goyal scale imaging description: Moderate to severe plaque at the bifurcation Percent internal carotid artery stenosis: 50-69% stenosis . Vertebral artery: Flow direction is antegrade. Left side: Brachial blood pressure: 137/64 mm Hg. Common carotid artery peak systolic velocity: 69 cm/sec. Internal carotid artery peak systolic velocity: 86 cm/sec. Internal carotid artery end diastolic velocity: 23 cm/sec. External carotid artery peak systolic velocity: 91 cm/sec. ICA/CCA peak systolic ratio: 1.2 . Goyal scale imaging description: Moderate plaque at the bifurcation Percent internal carotid artery stenosis: 50-69% stenosis . Vertebral artery: Flow direction is antegrade. IMPRESSION: 50-69% stenosis of the internal carotid arteries bilaterally. The estimate of stenosis included in the report of the imaging study was calculated using the NASCET method Reviewed by: Veronica Jacobo MD on 03/04/2022 3:40 PM PDT Approved by: Veronica Jacobo MD on 03/04/2022 3:40 PM PDT Station ID: [id number]
[2022-03-04 16:02] VITALS: BP 116/62
== END 2022-03-04 16:02 | disposition home or self-care (01) ==
LOC: ED 11:30
DX: R41.0 Disorientation, unspecified (principal); Z96.651 Presence of right artificial knee joint
CPT/HCPCS: 36415; 80053; 83690; 83735; 85025; 93005; 93880; 99284

== ENCOUNTER 2023-10-21 07:00 | Outpatient (CLI) | payer MEDICARE | END 2023-10-21 23:59 | disposition home or self-care (01) | LOC: LAB.S 07:00 | PROVIDERS: ATTEND Physician Assistant Medical | DX: R39.15 Urgency of urination (principal) | CPT/HCPCS: 87077; 87086; 87181 ==

== ENCOUNTER 2023-10-26 08:00 | Outpatient (CLI) | payer MEDICARE | END 2023-10-26 23:59 | disposition home or self-care (01) | LOC: LAB 08:00 | PROVIDERS: ATTEND Urology | DX: N30.90 Cystitis, unspecified without hematuria (principal) | CPT/HCPCS: 87086 ==